=== PATIENT | male | born 1970 | race Caucasian/White ===

== ENCOUNTER 2021-12-24 19:02 | Emergency (ER) | payer OTHER, SELFPAY ==
--- NOTE | 2021-12-24 19:05 | ED.SKABFB ---
HPI - Skin/Abscess/Foreign Bdy General Chief complaint: Animal Bite Stated complaint: Dog Bite/Right Thumb Time Seen by Provider: 12/24/21 19:05 Source: patient and RN notes reviewed History of Present Illness HPI narrative: Patient is a 51-year-old male who presents the urgent care with complaints of right thumb dog bite. Patient states that it was his own dog who is up-to-date on shots. States that happened this morning while they were playing. Patient is up-to-date on his tetanus. Patient states he took ibuprofen, Advil and cleanse the wound with peroxide and Hibiclens. No other acute complaints. No acute distress noted. Patient aware of the plan of care. Some parts of this dictation were generated by voice recognition software and may contain typographical and/or grammatical inaccuracies. Related Data Allergies Allergy/AdvReac Type Severity Reaction Status Date / Time No Known Allergies Allergy Verified 12/24/21 19:26 Review of Systems Review of Systems: CONSTITUTIONAL: Denies fever, chills, or sweats. EYES: Denies visual changes, redness, or discharge. ENT: Denies rhinorrhea, congestion, sore throat, or otalgia. CARDIOVASCULAR: Denies chest pain, palpitations, or edema. RESPIRATORY: Denies cough or dyspnea. GASTROINTESTINAL: Denies abdominal pain, nausea, vomiting, or diarrhea. GENITOURINARY: Denies dysuria or hematuria. SKIN: Reports of a dog bite to the right thumb MUSCULOSKELETAL: Denies back pain, joint pain, or myalgia. NEUROLOGIC: Denies headache, numbness, or weakness. All other systems reviewed are negative, except as documented in HPI. PMFSH Comments At the time of my signature, I reviewed and agree with the nursing past medical, surgical, social, and family history. There is no relevant family history pertinent to the patient complaint. Exam Narrative: GENERAL: This is a well-nourished, well-developed patient, in no apparent distress. HEAD: normocephalic, atraumatic. EYES: PERRL. Sclera clear/white. Vision is grossly intact. EARS: External ears normal NOSE: External nose normal with no obvious nasal discharge, nares without redness, no rhinorrhea. THROAT: Mucous membranes moist SKIN: Puncture wound to the base of the right dorsal thumb, puncture wound to the palmar aspect of the right thumb, superficial abrasion to the dorsal aspect of the right thumb NEURO: awake, alert, and oriented to person, place and time. There were no obvious focal neurologic abnormalities. EXTREMITIES: Range of motion to right upper extremity within normal limits with positive strong right radial pulse and capillary refill less than 2 seconds. Mild edema noted to the right thumb. Course Course Level of Care: Express Care Visit Vital Signs Vital signs: Vital Signs Temperature 99.2 F 12/24/21 19:26 Pulse Rate 84 12/24/21 19:26 Respiratory Rate 16 12/24/21 19:26 Blood Pressure 122/78 12/24/21 19:26 Pulse Oximetry 100 12/24/21 19:26 Oxygen Delivery Room Air 12/24/21 19:26 Temperature 99.2 F 12/24/21 19:26 Pulse Rate 84 12/24/21 19:26 Respiratory Rate 16 12/24/21 19:26 Blood Pressure 122/78 12/24/21 19:26 Pulse Oximetry 100 12/24/21 19:26 Oxygen Delivery Room Air 12/24/21 19:26 Reviewed MDM - Skin/Abscess/Foreign Bdy MDM Narrative Medical decision making narrative: Advised patient to complete the oral antibiotic regimen as prescribed. Be sure to eat and drink with medication. Keep the wound clean with plain Dial soap and water. Keep the puncture wounds covered with the use of Polysporin and bandages. Be aware of signs and symptoms of worsening infection such as increased redness, swelling, drainage from the wounds, fever, nausea or vomiting. Use Tylenol/ibuprofen as needed. Follow-up with your PCP within 2 to 5 days or for worsening symptoms or failure to improve. Differential Diagnosis Differential diagnosis: Likely abscess of skin or subcutaneous tissue, viral exanthem, dermatoph
[2021-12-24 19:26] VITALS: BP 122/78; PULSE 84; RESP 16; TEMP 37.3; O2SAT 100
== END 2021-12-24 19:34 | disposition home or self-care (01) ==
PROVIDERS: Emergency Provider Nurse Practitioner Family
DX: S61.031A Puncture wound without foreign body of right thumb without damage to nail, initial encounter (principal); W54.0XXA Bitten by dog, initial encounter
CPT/HCPCS: 99213; G0463